=== PATIENT | male | born 1955 | race Caucasian/White ===

== ENCOUNTER 2023-04-03 05:46 | Observation (INO) ==
[2023-04-03] MEDS ORDERED: SODIUM CHLORIDE 0.9% 1000ML 1,000 ML IV ONE (06:35)
[2023-04-03] MEDS ORDERED: SODIUM CHLORIDE 0.9% 250 ML IV PRN (06:35)
[2023-04-03] MEDS ORDERED: PANTOprazole 80 MG in DEXTROSE 5% 100 ML IV ONE (06:35)
[2023-04-03] MEDS ORDERED: PANTOPRAZOLE BOLUS/DRIP 1 EACH IV STA (06:35)
[2023-04-03] MEDS ORDERED: cefTRIAXone SODIUM 2,000 MG/70 ML BAG IV STA (06:35)
--- NOTE | 2023-04-03 06:40 | Emergency Department Note ---
Impression & Plan Hematemesis, Alcoholic ketosis, Lower respiratory infection (e.g., bronchitis, pneumonia, pneumonitis, pulmonitis), Transaminitis, Alcohol abuse, Coffee ground emesis ED Provider Note NAME: PHIL CLARK AGE: 68 SEX: M : 1955 ARRIVES VIA: Walk-In INFORMANT: Patient ED PROVIDER(S): Alexis Muniz DO CHIEF COMPLAINT: Vomiting and a cough HPI: Patient is a 68-year-old male who presents to the ER for symptoms that started this past Saturday. He admits to a cough and congestion. Has been coughing up green to yellow sputum. He has been feeling hot and cold. On he started vomiting. Today and through yesterday he has been vomiting what appears to be coffee-ground emesis/dark blood. He admits to epigastric abdominal pain. No headache or change in vision. No chest pain or shortness of breath. No dysuria, urgency, or frequency. No other exacerbating or remitting factors. He does admit to drinking alcohol. He drinks about a pint of whiskey a day. PAST MEDICAL HISTORY:See Below PAST SURGICAL HISTORY:See Below FAMILY HISTORY:See Below SOCIAL HISTORY:See Below HOME MEDICATIONS:See Below ALLERGIES:See Below VITALS:See Below PHYSICAL EXAMINATION: GENERAL: Sitting up in bed, alert, chronically ill-appearing, disheveled, dried blood on mouth EYE EXAM: normal conjunctiva. OROPHARYNX: Dry mucous membranes with blood around the lips LUNGS: Clear to auscultation. Normal chest wall mechanics HEART: no murmurs, S1 normal and S2 normal ABDOMEN: abdomen soft, non-tender, normo-active bowel sounds, no masses, no rebound or guarding. BACK: Back is symmetrical on inspection and there is no deformity, no midline tenderness, no CVA tenderness. SKIN: no rashes and no bruising UPPER EXTREMITIES: upper extremities are grossly normal. LOWER EXTREMITIES: No pitting edema. NEURO EXAM: Normal sensorium, cranial nerves II-XII grossly intact, normal speech, no gross weakness of arms, no gross weakness of legs. MEDICAL DECISION MAKING: Patient is a 68-year-old male who presents ER for above-stated complaint. IV was established blood work was obtained. External records were reviewed. Labs show mild leukocytosis of 11,000. No significant anemia. INR was unremarkable. BMP with a CO2 of 20 and a gap of 23. Glucose 172. Well-controlled cellulitis and T. bili 1.4. With the hematemesis patient was given IV fluids, Protonix drip and bolus and Rocephin. Did question infiltrates in the lungs and consequently gave azithromycin as well. Patient was updated bedside. Discussed with the hospitalist. He was given thiamine and folate. Admitted for further work-up. Triage Nursing notes reviewed. Limited review of prior medical records performed Vital Signs: reviewed and remarkable for HTN Differential diagnosis: Differential diagnoses includes but is not limited to gastritis, peptic ulcer disease, GERD, gallbladder disease, pancreatitis, small bowel obstruction, appendicitis, diverticulitis, hernia, urinary tract infection, torsion, perforation, trauma, infectious. ER treatment provided: See below Diagnostics interpreted by me include EKG and cardiac monitoring as listed below: -Cardiac Monitoring: An order was placed for continuous cardiac monitoring. The monitor shows a rate of 101 with sinus rhythm. -ECG: Sinus rhythm rate 80 Normal axis No PVCs QTc 495 -Laboratory studies:Interpreted by me as stated above in MDM and shown below. Imaging studies: Xrays: As interpreted by me: Portable AP upright 1 view of the chest shows a questionable hazy density in the right lower lobe CTs show: CT abdomen pelvis showed esophagitis and likely old rib fractures Consultation(s): As described in MDM Procedures:none Critical Care: None Past Med/Surg History Medical History Alcohol abuse HLD (hyperlipidemia) Hypertension Psoriasis Tick bite Surgical History History of colonoscopy with polypectomy 2020 diverticulosis sig colon with polypectomy showing adenomatous polyps Hx of oral surgery Family History Father Prostate cancer Mother Stroke Social History Smoking Status: Never smoker Tobacco Type: Cigarettes packs per day: 1; Cigarettes Per Day: 20; Smoking End Date: 2004; Hx Alcohol Use: Yes Alcohol type: other Alcohol type Comment: [place] Alcohol Intake Frequency Comment: 1 pint to 1/5 everyday Hx Substance Use: No Preferred Language: Greenlandic Communication Ability: Effective Meter Tester Required: No Beliefs That Will Affect Care: None marital status: Single Current Living Situation: Alone Current Living Situation Comment: lives home alone Other Information That Helps Us Care for You: No Feels Safe at Home: Yes Safety Concerns: Feels Safe At This Time Assistive Devices: Denture - Upper, Denture - Lower and Glasses Allergies Allergies Allergy/AdvReac Type Severity Reaction Status Date / Time No Known Allergies Allergy Unverified 01/15/19 15:48 Home Meds Home Medications Medication Instructions Recorded Confirmed diphenhydramine HCl 25 mg tablet 25 mg PO DAILY PRN Allergy Symptoms 01/15/19 04/03/23 (Allergy) atorvastatin 40 mg tablet 40 mg PO QAM 04/03/23 04/03/23 coenzyme Q10 100 mg tablet 100 mg PO DAILY 04/03/23 04/03/23 escitalopram oxalate 10 mg tablet 10 mg PO QAM 04/03/23 04/03/23 metoprolol succinate 50 mg 50 mg PO QAM 04/03/23 04/03/23 tablet,extended release 24 hr montelukast 10 mg tablet 10 mg PO DAILY 04/03/23 04/03/23 Results & Data (ED) Vital Signs Vital Signs - 24 hr 04/03/23 05:49 04/03/23 07:59 04/03/23 08:12 Temperature 36.3 C L Temperature Source Temporal Artery Scan Pulse Rate 109 H 89 Pulse Rate [Right Finger] 81 Respiratory Rate 20 16 Respiratory Depth Normal Blood Pressure 141/91 H Blood Pressure [Right Arm] 180/105 H Blood Pressure Mean 107 Blood Pressure Mean [Right Arm] 130 Pulse Oximetry 97 97 Oxygen Delivery Method Room Air Room Air Sepsis Recent Fever Within 48 Hours Yes Sepsis New/Unexplained Change in Mental Status No Sepsis Action Taken by Nursing No Action Required Laboratory Data 04/03/23 06:27 04/03/23 06:27 Lab Results 04/03/23 04/03/23 04/03/23 Range/Units 06:27 06:27 06:27 WBC 11.16 H (4.8-10.8) K/ul RBC 4.02 L (4.70-6.10) M/uL Hgb 14.1 (14.0-18.0) g/dl Hct 40.7 L (42.0-52.0) % MCV 101.2 H (80.0-100.0) fL MCH 35.1 H (25.0-34.0) pg MCHC 34.6 (32.0-36.0) g/dL RDW Std Deviation 47.9 H (36.4-46.3) fL RDW Coeff of Rashawn 12.8 (11.5-14.5) % Plt Count 256 (130-400) K/uL MPV 10.7 (9.4-12.4) fL PT 10.7 (9.0-12.0) Seconds INR 1.0 (0.9-1.1) APTT 26.3 (21.0-31.0) Seconds PTT Ratio 0.9 Sodium 142 (136-145) mmol/L Potassium 3.8 (3.5-5.1) mmol/L Chloride 99 (98-107) mmol/L Carbon Dioxide 20 L (21-32) mmol/L Anion Gap 23 H (3-11) BUN 12 (6-23) mg/dl Creatinine 1.09 (0.6-1.4) mg/dl Est Cr Clr Drug Dosing Not Reportable Est GFR ( Amer) 81.0 ml/min Est GFR (Non-Af Amer) 69.9 ml/min BUN/Creatinine Ratio 11.0 (10-20) Glucose 172 H (70-99(Fasting)) mg/dl Calcium 9.5 (8.6-10.3) mg/dl Total Bilirubin 1.4 H (0.2-1.0) mg/dl AST 133 H (13-39) U/L ALT 53 H (7-52) U/L Alkaline Phosphatase 140 H (34-104) U/L Troponin I High Sens 15.1 (0-20) pg/ml Total Protein 8.0 (6.0-8.3) gm/dl Albumin 4.8 (3.4-5.0) gm/dl Globulin 3.2 (2.5-4.0) gm/dl Albumin/Globulin Ratio 1.5 (0.9-2) SARS-CoV-2 (PCR) (Negative) Influenza Type A (PCR) (Neg) Influenza Type B (PCR) (Neg) RSV (RT-PCR) (Neg) Blood Type Antibody Screen Crossmatch 04/03/23 04/03/23 Range/Units 06:27 06:54 WBC (4.8-10.8) K/ul RBC (4.70-6.10) M/uL Hgb (14.0-18.0) g/dl Hct (42.0-52.0) % MCV (80.0-100.0) fL MCH (25.0-34.0) pg MCHC (32.0-36.0) g/dL RDW Std Deviation (36.4-46.3) fL RDW Coeff of Rashawn (11.5-14.5) % Plt Count (130-400) K/uL MPV (9.4-12.4) fL PT (9.0-12.0) Seconds INR (0.9-1.1) APTT (21.0-31.0) Seconds PTT Ratio Sodium (136-145) mmol/L Potassium (3.5-5.1) mmol/L Chloride (98-107) mmol/L Carbon Dioxide (21-32) mmol/L Anion Gap (3-11) BUN (6-23) mg/dl Creatinine (0.6-1.4) mg/dl Est Cr Clr Drug Dosing Est GFR ( Amer) ml/min Est GFR (Non-Af Amer) ml/min BUN/Creatinine Ratio (10-20) Glucose (70-99(Fasting)) mg/dl Calcium (8.6-10.3) mg/dl Total Bilirubin (0.2-1.0) mg/dl AST (13-39) U/L ALT (7-52) U/L Alkaline Phosphatase (34-104) U/L Troponin I High Sens (0-20) pg/ml Total Protein (6.0-8.3) gm/dl Albumin (3.4-5.0) gm/dl Globulin (2.5-4.0) gm/dl Albumin/Globulin Ratio (0.9-2) SARS-CoV-2 (PCR) NEGATIVE (Negative) Influenza Type A (PCR) Negative (Neg) Influenza Type B (PCR) Negative (Neg) RSV (RT-PCR) Negative (Neg) Blood Type O Negative Antibody Screen NEGATIVE Crossmatch See Detail Administered Medications Pantoprazole Sodium 40 mg/ (Dextrose) 100 mls @ 20 mls/hr IV Q5H [facility] Stop: 05/03/23 06:59 Last Admin: 04/03/23 12:06 Dose: 8 mg/hr, 20 mls/hr Documented By: Infusion: 04/03/23 12:06 Dose: 8 mg/hr, 20 mls/hr Documented By: Admin: 04/03/23 07:56 Dose: 8 mg/hr, 20 mls/hr Documented By: MAY Dextrose/Lactated Ringer's (D5w And Lactated Ringers) 1,000 mls @ 100 mls/hr IV .Q10H YANG Stop: 05/03/23 10:20 Last Admin: 04/03/23 11:23 Dose: 100 mls/hr Documented By: EARLINE Discontinued Medications Pantoprazole Sodium (Protonix Bolus/Drip) 0 mls @ 1 mls/hr IV ONE STA Stop: 04/03/23 06:36 Last Admin: 04/03/23 07:19 Dose: Not Given Documented By: MAY Pantoprazole Sodium 80 mg/ (Dextrose) 120 mls @ 400 mls/hr IV NOW ONE Stop: 04/03/23 06:52 Last Infusion: 04/03/23 07:22 Dose: 0 mls/hr Documented By: Admin: 04/03/23 07:00 Dose: 400 mls/hr Documented By: MAY Ceftriaxone Sodium (Rocephin) 2,000 mg in 70 mls @ 140 mls/hr IV NOW STA Stop: 04/03/23 07:04 Last Infusion: 04/03/23 08:30 Dose: 0 mls/hr Documented By: Admin: 04/03/23 07:48 Dose: 140 mls/hr Documented By: MAY Sodium Chloride (Nss 1000ml) 1,000 mls @ 999 mls/hr IV .Q1H1M ONE Stop: 04/03/23 07:35 Last Infusion: 04/03/23 10:25 Dose: 0 mls/hr Documented By: Admin: 04/03/23 07:48 Dose: 999 mls/hr Documented By: MAY Thiamine HCl 100 mg/ Syringe 10 mls @ 2 mls/min IV NOW STA Stop: 04/03/23 08:42 Last Admin: 04/03/23 09:05 Dose: 2 mls/min Documented By: MAY Folic Acid 1 mg/ Syringe 10 mls @ 5 mls/min IV NOW STA Stop: 04/03/23 08:39 Last Admin: 04/03/23 09:05 Dose: 5 mls/min Documented By: MAY Azithromycin 500 mg/ Dextrose 255 mls @ 127.5 mls/hr IV NOW STA Stop: 04/03/23 10:44 Last Infusion: 04/03/23 11:23 Dose: 0 mls/hr Documented By: Admin: 04/03/23 09:10 Dose: 127.5 mls/hr Documented By: MAY Ioversol (Optiray 320 100ml) 94 ml IV ONCE ONE Stop: 04/03/23 07:36 Last Admin: 04/03/23 07:31 Dose: 94 ml Documented By: JOSEPH Imaging Data Radiologist's Impression: Abdomen/Pelvis CT 04/03/23 07:[address] WITH IV CONTRAST CT DOSE: 468.58 mGy.cm HISTORY: vomiting blood TECHNIQUE: Multiaxial CT images of the abdomen and pelvis were performed followi ng the use of intravenous contrast. A dose lowering technique was utilized adhering to the principles of ALARA. COMPARISON STUDY: None. FINDINGS: There are trace bilateral pleural effusions. Moderate circumferential thickening of the distal esophagus with paraesophageal edema/fluid. This is favors a nonspecific esophagitis. No pneumomediastinum identified to suggest an esophageal perforation. Linear densities within the right lower lobe favor scarring. There are multiple healing/healed right-sided rib fractures. This likely accounts for the previously described chest x-ray abnormality. Multiple old, healed left-sided rib fractures are noted. Focal indentation at the inferior endplate of L1 likely represents a Schmorl's node or old fracture. No paravertebral edema to suggest an acute injury. No pneumoperitoneum. No pneumatosis. A few prominent gastrohepatic lymph node measuring up to 6 mm. This may be reactive. Hepatic steatosis. The main portal vein is patent. The gallbladder, pancreas, spleen, adrenal glands are unremarkable. The kidneys enhance normally. No hydronephrosis. Moderate calcified plaque within the normal caliber abdominal aorta. No retroperitoneal or pelvic lymphadenopathy. No pelvic free fluid. The bladder is unremarkable. Colonic diverticulosis. No evidence for acute diverticulitis. Normal appendix. No evidence for a bowel obstruction. IMPRESSION: 1. Moderate circumferential thickening of the distal esophagus with paraesophageal edema/fluid. This is favors a nonspecific esophagitis. An underlying esophageal injury could also have a similar appearance in the appropriate clinical setting. However, there is no pneumomediastinum identified to suggest an esophageal perforation. 2. Trace bilateral pleural effusions. 3. Multiple healing/healed right-sided rib fractures with right lower lobe linear scarlike densities. This likely accounts for the chest x-ray abnormality. 4. Hepatic steatosis. 5. No bowel wall thickening or obstruction. 6. Additional findings as described above. ACT 112: Negative or not required by law. Electronically signed by: Dalton Sanchez M.D. 04/03/2023 8:19 AM Chest X-Ray 04/03/23 07:01 XR chest 1V portable HISTORY: cough COMPARISON: Chest 01/15/2019. FINDINGS: No pneumothorax. No pleural effusions. The cardiac silhouette is normal in size. There are calcifications within the thoracic aorta. The left lung is clear. There are old, healed bilateral rib fractures noted. Small hazy density within the periphery of the right lower lung zone. This could be due to overlapping soft tissue or a developing airspace opacity. IMPRESSION: Small hazy density within the periphery of the right lower lung zone which could be due to overlying soft tissue or a developing airspace opacity. This will be better appreciated on the same day abdomen and pelvis CT. ACT 112: Negative or not required by law. Electronically signed by: Dalton Sanchez M.D. 04/03/2023 7:38 AM Discharge Plan Visit Data Chief Complaint: Flu Like Symptoms Stated Complaint: COVID POSSIBLE POS, COUGHING BLOOD ED Provider: Alexis Muniz Discharge Problem: Hematemesis, Alcoholic ketosis, Lower respiratory infection (e.g., bronchitis, pneumonia, pneumonitis, pulmonitis), Transaminitis, Alcohol abuse, Coffee ground emesis Patient Disposition: Admitted As Inpatient Discharge Instructions Interventions: ED Discharge Assessment Last Done: 04/03/23 09:25
[2023-04-03 06:51] LABS: Hematocrit (blood only) 40.7 % (42.0-52.0); Hemoglobin 14.1 g/dl (14.0-18.0); Mean Corpuscular Hemoglobin 35.1 pg (25.0-34.0); Mean Corpuscular Hgb Conc 34.6 g/dL (32.0-36.0); Mean Corpuscular Volume 101.2 fL (80.0-100.0); Mean Platelet Volume 10.7 fL (9.4-12.4); Platelet Count 256 K/uL (130-400); RDW Coefficient of Variation 12.8 % (11.5-14.5); RDW Standard Deviation 47.9 fL (36.4-46.3); Red Blood Count 4.02 M/uL (4.70-6.10); White Blood Count 11.16 K/ul (4.8-10.8)
[2023-04-03 07:04] LABS: Alanine Aminotransferase 53 U/L (7-52); Albumin Globulin Ratio 1.5 (0.9-2); Albumin Level 4.8 gm/dl (3.4-5.0); Alkaline Phosphatase 140 U/L (34-104); Anion Gap 23 (3-11); Aspartate Aminotransferase 133 U/L (13-39); Bilirubin,Total 1.4 mg/dl (0.2-1.0); Blood Urea Nitrogen 12 mg/dl (6-23); Calcium 9.5 mg/dl (8.6-10.3); Carbon Dioxide 20 mmol/L (21-32); Chloride 99 mmol/L (98-107); Est GFR (Non-African American) 69.9 ml/min; Globulin 3.2 gm/dl (2.5-4.0); Glucose 172 mg/dl (70-99(Fasting)); Potassium 3.8 mmol/L (3.5-5.1); Sodium 142 mmol/L (136-145)
[2023-04-03 07:11] LABS: Partial Thromboplastin Ratio 0.9; Partial Thromboplastin Time 26.3 Seconds (21.0-31.0); Prothrombin Time 10.7 Seconds (9.0-12.0)
[2023-04-03 07:12] LABS: Troponin I High Sensitivity 15.1 pg/ml (0-20)
[2023-04-03] MEDS ORDERED: OPTIRAY 320 100ml IV ONE (07:35)
--- NOTE | 2023-04-03 07:39 | XRay Report ---
XR chest 1V portable HISTORY: cough COMPARISON: Chest 01/15/2019. FINDINGS: No pneumothorax. No pleural effusions. The cardiac silhouette is normal in size. There are calcifications within the thoracic aorta. The left lung is clear. There are old, healed bilateral rib fractures noted. Small hazy density within the periphery of the right lower lung zone. This could be due to overlapping soft tissue or a developing airspace opacity. IMPRESSION: Small hazy density within the periphery of the right lower lung zone which could be due to overlying soft tissue or a developing airspace opacity. This will be better appreciated on the same day abdomen and pelvis CT. ACT 112: Negative or not required by law. Electronically signed by: Dalton Sanchez M.D. 04/03/2023 7:38 AM
[2023-04-03 07:48] LABS: Influenza A virus by PCR Negative (Neg); Influenza B virus by PCR Negative (Neg); RSV by PCR Negative (Neg); SARS CoV2 RNA(COVID-19) Ceph NEGATIVE (Negative)
[2023-04-03] MEDS: PANTOprazole 40 MG in DEXTROSE 5% 100 ML IV SCH ×4 (07:56→21:49)
--- NOTE | 2023-04-03 08:20 | CT Scan Report ---
ABDOMEN AND PELVIS CT WITH IV CONTRAST CT DOSE: 468.58 mGy.cm HISTORY: vomiting blood TECHNIQUE: Multiaxial CT images of the abdomen and pelvis were performed following the use of intrave nous contrast. A dose lowering technique was utilized adhering to the principles of ALARA. COMPARISON STUDY: None. FINDINGS: There are trace bilateral pleural effusions. Moderate circumferential thickening of the dis kelly esophagus with paraesophageal edema/fluid. This is favors a nonspecific esophagitis. No pneumomed iastinum identified to suggest an esophageal perforation. Linear densities within the right lower lob e favor scarring. There are multiple healing/healed right-sided rib fractures. This likely accounts f or the previously described chest x-ray abnormality. Multiple old, healed left-sided rib fractures ar e noted. Focal indentation at the inferior endplate of L1 likely represents a Schmorl's node or old f racture. No paravertebral edema to suggest an acute injury. No pneumoperitoneum. No pneumatosis. A fe w prominent gastrohepatic lymph node measuring up to 6 mm. This may be reactive. Hepatic steatosis. T he main portal vein is patent. The gallbladder, pancreas, spleen, adrenal glands are unremarkable. Th e kidneys enhance normally. No hydronephrosis. Moderate calcified plaque within the normal caliber ab dominal aorta. No retroperitoneal or pelvic lymphadenopathy. No pelvic free fluid. The bladder is unr emarkable. Colonic diverticulosis. No evidence for acute diverticulitis. Normal appendix. No evidence for a bowel obstruction. IMPRESSION: 1. Moderate circumferential thickening of the distal esophagus with paraesophageal edema/fluid. This is favors a nonspecific esophagitis. An underlying esophageal injury could also have a similar appear ance in the appropriate clinical setting. However, there is no pneumomediastinum identified to sugges t an esophageal perforation. 2. Trace bilateral pleural effusions. 3. Multiple healing/healed right-sided rib fractures with right lower lobe linear scarlike densities. This likely accounts for the chest x-ray abnormality. 4. Hepatic steatosis. 5. No bowel wall thickening or obstruction. 6. Additional findings as described above. ACT 112: Negative or not required by law. Electronically signed by: Dalton Sanchez M.D. 04/03/2023 8:19 AM
[2023-04-03] MEDS ORDERED: THIAMINE HCL 100 MG in SYRINGE 9 ML IV STA (08:38)
[2023-04-03] MEDS ORDERED: FOLIC ACID 1 MG in SYRINGE 9.8 ML IV STA (08:38)
[2023-04-03] MEDS ORDERED: AZITHROMYCIN 500 MG in DEXTROSE 5% 250 ML IV STA (08:45)
--- NOTE | 2023-04-03 10:16 | Gastrointestinal Consultation ---
Date of Consultation April 03, 2023 Assessment & Plan (1) Transaminitis: (2) Coffee ground emesis: (3) Lower respiratory infection (e.g., bronchitis, pneumonia, pneumonitis, pulmonitis): Pt is a 68 yo male who presented w productive cough, n/v symptoms and had an episode of hematemesis in ED this AM. He is hypertensive but normal HR, blood ct, plt, coag functions are normal. Liver appears steatotic on CT. CT showed distal esophagus thickening wo pneumomediastinum. Pt w hx of heavy ETOH use, and prior NSAIDs. DDX: severe esophagitis, Alma Loera tear, PUD, gastritis. - May have sips/chips today - NPO after MN for EGD eval tomorrow 04/04 - PPI bolus and gtt - Avoid NSAIDs/high dose ASA - ETOH cessation - Symptomatic management otherwise - Noted elevated LFTs: Tbili 1.4, AST 133, ALT 53, Alk phos. Suspect related to ETOH hepatitis (Maddrey score <32). Will trend, but will also obtain serologies to r/o AIH, viral/hepatitis infections Supervising Physician Co-Signing Physician Notes I personally saw and evaluated the patient on 04/03/2023 with ARLEY Parnell and agree with her findings and plan of care. 68 y/o M with history of alcohol abuse drinking 1 pint to 1/5 daily who presented with 4-5 episodes of coffee ground emesis. States last episode was about 5 years ago. Had alot of nausea prior to emesis. No bright red blood, hematochezia, or melena. Had a colonoscopy 4 years ago but no history of EGD. hgb 14 on admission with normal BUN. No history of cirrhosis/liver disease. CT abdomen with hepatic steatosis. Platelet count and INR normal. Abdomen is soft and non-tender on exam. Will plan for EGD tomorrow for further evaluation as patient is HDS. Suspect esophagitis or alma loera tear. NPO at midnight. Continue PPI drip. Trend H/H. If he becomes unstable or has large volume/bright red hematemesis please let us know as he would need more urgent endoscopy. Ok for clear liquid diet today. Sister at bedside updated. His elevated LFTs is likely due to alcohol abuse. Continue to trend. Dulce Flores, DO Gastroenterology and Hepatology History of Present Illness Reason for Consultation: Coffee ground emesis ; abnormal CT of esophagus Requesting Physician: Dr. Yadiel Figueroa Attending Physician: Dr. Dulce Flores History of Present Illness Pt is a 68 yo male w PMHx of HTN, HLD, depression, who presented to ED today w productive cough, nausea and vomiting symptoms since 2 days ago. He's having fever, chills but didn't take hi temp. His sputum was yellowish. RSV, flue and COVID negative. This morning had coffee ground emesis x 1 episode in ED (about 200ml). He reports sore throat, and but denies abd pain. Last BM 2 days ago wo dark tarry stools or BRBPR. He did notice dark stools months ago. Pt drinks 1 pint of [place] a day. + marijuana, denies tobacco currently. Rarely takes Ibuprofen. Labs showed he has mild leukocytosis, normal blood ct, plt, BUN. No coagulopathy. CT abd/pelvis w contrast showed moderate circumferential thickening of distal esophagus w paraesophageal edema/fluid favoring non specific esophagitis. No pneumomediastinum to suggest perforation. + hepatic steatosis, healed R ribs fractures, bilateral pleural effusions. No hx of EGD. Last colonoscopy in 2019 - colon polyps. Scheduled for repeat screening colonoscopy 07/2023 Allergies Allergy/AdvReac Type Severity Reaction Status Date / Time No Known Allergies Allergy Unverified 01/15/19 15:48 Home Medications Medication Instructions Recorded Confirmed Type diphenhydramine HCl 25 mg tablet 25 mg PO DAILY PRN Allergy Symptoms 01/15/19 04/03/23 History (Allergy) atorvastatin 40 mg tablet 40 mg PO QAM 04/03/23 04/03/23 History coenzyme Q10 100 mg tablet 100 mg PO DAILY 04/03/23 04/03/23 History escitalopram oxalate 10 mg tablet 10 mg PO QAM 04/03/23 04/03/23 History metoprolol succinate 50 mg 50 mg PO QAM 04/03/23 04/03/23 History tablet,extended release 24 hr montelukast 10 mg tablet 10 mg PO DAILY 04/03/23 04/03/23 History Patient History Medical History Alcohol abuse HLD (hyperlipidemia) Hypertension Psoriasis Tick bite Surgical History History of colonoscopy with polypectomy 2020 diverticulosis sig colon with polypectomy showing adenomatous polyps Hx of oral surgery Family History Father Prostate cancer Mother Stroke Social History Smoking Status: Never smoker Tobacco Type: Cigarettes packs per day: 1; Cigarettes Per Day: 20; Smoking End Date: 2004; Hx Alcohol Use: Yes Alcohol type: other Alcohol type Comment: [place] Alcohol Intake Frequency Comment: 1 pint to 1/5 everyday Hx Substance Use: No Preferred Language: [place]an Communication Ability: Effective Wage And Salary Administrator Required: No Beliefs That Will Affect Care: None marital status: Single Current Living Situation: Alone Current Living Situation Comment: lives home alone Other Information That Helps Us Care for You: No Feels Safe at Home: Yes Safety Concerns: Feels Safe At This Time Assistive Devices: Denture - Upper, Denture - Lower and Glasses Review of Systems Review of Systems: All systems reviewed & are unremarkable except as noted in HPI & below Physical Exam Constitutional: + thin and cooperative Eyes: PERRL, conjunctivae normal, anicteric sclerae ENMT: external ear and nose normal, oropharynx normal Respiratory: Crackles on RUL, + productive cough. Cardiovascular: RRR, no murmur, no edema Gastrointestinal (Abdomen): normal bowel sounds, soft, nontender, no hepatosplenomegaly Skin: no rashes, warm and dry no jaundice Psychiatric: A+Ox3, euthymic affect Lymphatic: no lymphedema Results & Data Vital Signs (Past 12 Hours) Vital Signs Temp Pulse Pulse Resp BP BP Pulse Ox 04/03/23 09:25 04/03/23 09:19 87 16 140/100 97 04/03/23 08:12 89 04/03/23 07:59 81 16 180/105 H 97 04/03/23 05:49 36.3 C L 109 H 20 141/91 H 97 O2 Del Method 04/03/23 09:25 Room Air 04/03/23 09:19 04/03/23 08:12 04/03/23 07:59 Room Air 04/03/23 05:49 Room Air
[2023-04-03] MEDS ORDERED: ACETAMINOPHEN 325 MG TAB PO PRN (10:21)
[2023-04-03] MEDS ORDERED: LORazepam 2 MG/1 ML VIAL IV PRN (10:21)
[2023-04-03] MEDS ORDERED: POLYETHYLENE (MIRALAX) 17 GM PACK PO PRN (10:21)
[2023-04-03] MEDS ORDERED: ONDANSETRON INJ 2 MG/ML 2 ML VIAL IV PRN (10:21)
[2023-04-03] MEDS ORDERED: PROMETHAZINE HCL 6.25 MG in SODIUM CHLORIDE 0.9% 50 ML IV PRN (10:33)
--- NOTE | 2023-04-03 10:38 | History & Physical Report ---
Date of Service April 03, 2023 Assessment & Plan (1) Coffee ground emesis: (2) Alcoholic ketosis: (3) Lower respiratory infection (e.g., bronchitis, pneumonia, pneumonitis, pulmonitis): (4) Alcohol abuse: (5) Hypertension: (6) Transaminitis: Plan This is a 68-year-old male who has significant past medical history of HTN, HLD, allergic rhinitis, depression, former tobacco abuse and alcohol abuse who presents to ER secondary to flulike symptoms x5 days; coffee-ground emesis x2 days. Coffee ground emesis Suspected UGIB admit to tele continue PPI bolus/gtt NPO until seen by GI consult gastroenterology type/crossed, tranfuse if hgb < 7 repeat H/H this afternoon IV D5LR @ 100cc/hr Blood consent was obtained from the patient as delegated by Dr. Figueroa. Risks and benefits were explained. All questions were answered, and the patient was offered the opportunity to discuss with attending physician and declined. Alcohol abuse drinks 1 pint to 1/5 of bourbon daily last drink 5 days ago, likely out of withdrawal window awss scale, prn ativan daily thiamine and folic acid counseled on cessation Alcoholic ketosis Elevated anion gap likely in setting of alcohol use follow daily labs Lower respiratory tract infection pt producing purulent sputum, obtain sputum culture continue empiric antibiotics for now with Rocephin, will switch to Doxy 2/2 QTC will do IV antibiotics for now until pt better able to tolerate PO check procalcitonin Prolonged QTC avoid QTC prolonging meds Hyperglycemia check a1c in a.m. Transaminitis AST > ALT likely 2/2 alcohol trend liver functions CT reveal hepatic steatosis Hold statin for now HTN continue metoprolol DVT ppx: SCDS 2/2 suspected GIB DNR/DNI PCP: Gaston Yañez Dispo: admit to tele, pt states he let his medicaid lapse, CM may be able to assist with this Pt was seen and examined in collaboration with Dr. Figueroa, please see addendum A total of 80 was spent coordinating, documenting, and providing care for this patient excluding time spent in the performance of separately billed services. This included personally viewing all current laboratories and imaging studies, medication reconciliation, outpatient chart review, and discussion with florentin jackman. The chart was completed utilizing [employer] Speech voice recognition software. Grammatical errors, random word insertions, pronoun errors, and incomplete sentences are an occasional consequence of this system due to software limitations, ambient noise, and hardware issues. Any formal questions or concerns about the content, text, or information contained within the body of this dictation should be directly addressed to the provider for clarification.. Admission and Anticipated Discharge Date Admission Date: April 03, 2023 History of Present Illness Chief Complaint: Flulike symptoms x5 days; coffee-ground emesis x2 days. Primary Care Provider: Gaston Yañez DO This is a 68-year-old male who has significant past medical history of HTN, HLD, allergic rhinitis, depression, former tobacco abuse and alcohol abuse who presents to ER secondary to flulike symptoms x5 days; coffee-ground emesis x2 days. Patient's sister is at bedside. He is a retired [employer]. His symptoms started on Saturday with sinus congestion, sore throat and productive cough. The symptoms have continued and worsened and is now producing purulent colored sputum. He also generally feels nauseated, fevers, chills, sweats, lightheaded and dizzy. Yesterday he developed vomiting and described it as coffee-ground in nature. In ER he had episode of emesis and produced 300 cc of coffee-ground fluid. He denies any abdominal pain or diarrhea. His last bowel movement was 5 days ago. He has had poor appetite over the last several days and inability to eat, drink or take his medications. He also states significant weight loss over the last several months but is unable to quantify how much. Sister at bedside also noticed weight loss. He no longer smokes tobacco and quit approximately 15 to 20 years ago. He does drink a pint to 1/5 of bourbon every day. His last drink was on Saturday. He denies any prior history of withdrawal or having withdrawal-like symptoms. He currently lives by himself. In ED patient's blood pressure was elevated but he otherwise remained hemodynamically stable. Lab work revealed a stable H&H at 14.1 and 40.7 with microcytic indices. He had a slight elevation in his WBC at 11.16 K, BUN 12, creatinine 1.09, elevated anion gap at 23, glucose 172 and transaminitis with total bilirubin 1.1, AST 133, ALT 53 and alkaline phosphatase at 140. His PT and INR was normal. CT abdomen pelvis revealed moderate circumferential thickening of the distal esophagus with paraesophageal edema/fluid favoring a nonspecific esophagitis. Trace bilateral pleural effusions, multiple healed right-sided rib fractures and hepatic steatosis. Patient states he fell off a ladder approximately 6 years ago. He denies any chest pain. He was type and screen. Allergies Allergy/AdvReac Type Severity Reaction Status Date / Time No Known Allergies Allergy Unverified 01/15/19 15:48 Home Medications Medication Instructions Recorded Confirmed Type diphenhydramine HCl 25 mg tablet 25 mg PO DAILY PRN Allergy Symptoms 01/15/19 04/03/23 History (Allergy) atorvastatin 40 mg tablet 40 mg PO QAM 04/03/23 04/03/23 History coenzyme Q10 100 mg tablet 100 mg PO DAILY 04/03/23 04/03/23 History escitalopram oxalate 10 mg tablet 10 mg PO QAM 04/03/23 04/03/23 History metoprolol succinate 50 mg 50 mg PO QAM 04/03/23 04/03/23 History tablet,extended release 24 hr montelukast 10 mg tablet 10 mg PO DAILY 04/03/23 04/03/23 History Past Med/Surg History Medical History Alcohol abuse HLD (hyperlipidemia) Hypertension Psoriasis Tick bite Surgical History History of colonoscopy with polypectomy 2020 diverticulosis sig colon with polypectomy showing adenomatous polyps Hx of oral surgery Family History Father Prostate cancer Mother Stroke Social History Smoking Status: Never smoker Tobacco Type: Cigarettes packs per day: 1; Cigarettes Per Day: 20; Smoking End Date: 2004; Hx Alcohol Use: Yes Alcohol type: other Alcohol type Comment: [place] Alcohol Intake Frequency Comment: 1 pint to 1/5 everyday Hx Substance Use: No Preferred Language: Israeli Communication Ability: Effective Beer Cooler Required: No Beliefs That Will Affect Care: None marital status: Single Current Living Situation: Alone Current Living Situation Comment: lives home alone Other Information That Helps Us Care for You: No Feels Safe at Home: Yes Safety Concerns: Feels Safe At This Time Assistive Devices: Denture - Upper, Denture - Lower and Glasses Review of Systems Review of Systems: All systems reviewed & are unremarkable except as noted in HPI & below Physical Exam Physical Exam: Constitutional: Chronically ill appearing, thin, M, vitals as above, NAD, sitting up in bed, pleasant, conversing easily Head: Normocephalic, Atraumatic Eyes: PERRL, conjunctivae normal, anicteric sclerae ENMT: external ear and nose normal, oropharynx normal dry membranes, erythematous pharynx Neck: trachea midline, no thyromegaly normal visual inspection Respiratory: normal respiratory effort, lungs with bibasilar rhonchi, no wheeze, rales. Normal insp/exp effort, no accessory muscle use, saturing normally on room air Cardiovascular: RRR, no murmur, no edema Vessels: no JVD or carotid bruit Chest: normal inspection of chest Abdomen: normal bowel sounds, soft, nontender, no hepatosplenomegaly Musculoskeletal: no cyanosis or clubbing, extremities motor strength 5/5 Skin: no rashes, warm and dry normal turgor Neurologic: PERRL, EOMI, accommodation nl, no face palsy, no dysarthria CN's II-XI intact bilaterally and moves all extremities Psychiatric: A+Ox3, euthymic affect Lymphatic: no cervical or axillary lymphadenopathy : deferred Results & Data Results & Data Vital Signs (Past 12 Hours) Vital Signs Temp Pulse Pulse Resp BP BP Pulse Ox 04/03/23 09:25 04/03/23 09:19 87 16 140/100 97 04/03/23 08:12 89 04/03/23 07:59 81 16 180/105 H 97 04/03/23 05:49 36.3 C L 109 H 20 141/91 H 97 O2 Del Method 04/03/23 09:25 Room Air 04/03/23 09:19 04/03/23 08:12 04/03/23 07:59 Room Air 04/03/23 05:49 Room Air Diagnostic Findings Abdomen/Pelvis CT 04/03/23 07:[address] WITH IV CONTRAST CT DOSE: 468.58 mGy.cm HISTORY: vomiting blood TECHNIQUE: Multiaxial CT images of the abdomen and pelvis were performed following the use of intravenous contrast. A dose lowering technique was utilized adhering to the principles of ALARA. COMPARISON STUDY: None. FINDINGS: There are trace bilateral pleural effusions. Moderate circumferential thickening of the distal esophagus with paraesophageal edema/fluid. This is favors a nonspecific esophagitis. No pneumomediastinum identified to suggest an esophageal perforation. Linear densities within the right lower lobe favor scarring. There are multiple healing/healed right-sided rib fractures. This likely accounts for the previously described chest x-ray abnormality. Multiple old, healed left-sided rib fractures are noted. Focal indentation at the inferior endplate of L1 likely represents a Schmorl's node or old fracture. No paravertebral edema to suggest an acute injury. No pneumoperitoneum. No p neumatosis. A few prominent gastrohepatic lymph node measuring up to 6 mm. This may be reactive. Hepatic steatosis. The main portal vein is patent. The gallbladder, pancreas, spleen, adrenal glands are unremarkable. The kidneys enhance normally. No hydronephrosis. Moderate calcified plaque within the normal caliber abdominal aorta. No retroperitoneal or pelvic lymphadenopathy. No pelvic free fluid. The bladder is unremarkable. Colonic diverticulosis. No evidence for acute diverticulitis. Normal appendix. No evidence for a bowel obstruction. IMPRESSION: 1. Moderate circumferential thickening of the distal esophagus with paraesophageal edema/fluid. This is favors a nonspecific esophagitis. An underlying esophageal injury could also have a similar appearance in the appropriate clinical setting. However, there is no pneumomediastinum identified to suggest an esophageal perforation. 2. Trace bilateral pleural effusions. 3. Multiple healing/healed right-sided rib fractures with right lower lobe linear scarlike densities. This likely accounts for the chest x-ray abnormality. 4. Hepatic steatosis. 5. No bowel wall thickening or obstruction. 6. Additional findings as described above. ACT 112: Negative or not required by law. Electronically signed by: Dalton Sanchez M.D. 04/03/2023 8:19 AM Chest X-Ray 04/03/23 07:01 XR chest 1V portable HISTORY: cough COMPARISON: Chest 01/15/2019. FINDINGS: No pneumothorax. No pleural effusions. The cardiac silhouette is normal in size. There are calcifications within the thoracic aorta. The left lung is clear. There are old, healed bilateral rib fractures noted. Small hazy density within the periphery of the right lower lung zone. This could be due to overlapping soft tissue or a developing airspace opacity. IMPRESSION: Small hazy density within the periphery of the right lower lung zone which could be due to overlying soft tissue or a developing airspace opacity. This will be better appreciated on the same day abdomen and pelvis CT. ACT 112: Negative or not required by law. Electronically signed by: Dalton Sanchez M.D. 04/03/2023 7:38 AM Medications Administered Medication List Pantoprazole Sodium 40 mg/ (Dextrose) 100 mls @ 20 mls/hr IV Q5H YANG Stop: 05/03/23 06:59 Last Admin: 04/03/23 07:56 Dose: 8 mg/hr, 20 mls/hr Documented By: MAY Azithromycin 500 mg/ Dextrose 255 mls @ 127.5 mls/hr IV NOW STA Stop: 04/03/23 10:44 Last Admin: 04/03/23 09:10 Dose: 127.5 mls/hr Documented By: MAY Discontinued Medications Pantoprazole Sodium (Protonix Bolus/Drip) 0 mls @ 1 mls/hr IV ONE STA Stop: 04/03/23 06:36 Last Admin: 04/03/23 07:19 Dose: Not Given Documented By: MAY Pantoprazole Sodium 80 mg/ (Dextrose) 120 mls @ 400 mls/hr IV NOW ONE Stop: 04/03/23 06:52 Last Infusion: 04/03/23 07:22 Dose: 0 mls/hr Documented By: Admin: 04/03/23 07:00 Dose: 400 mls/hr Documented By: MAY Ceftriaxone Sodium (Rocephin) 2,000 mg in 70 mls @ 140 mls/hr IV NOW STA Stop: 04/03/23 07:04 Last Infusion: 04/03/23 08:30 Dose: 0 mls/hr Documented By: Admin: 04/03/23 07:48 Dose: 140 mls/hr Documented By: MAY Sodium Chloride (Nss 1000ml) 1,000 mls @ 999 mls/hr IV .Q1H1M ONE Stop: 04/03/23 07:35 Last Admin: 04/03/23 07:48 Dose: 999 mls/hr Documented By: MAY Thiamine HCl 100 mg/ Syringe 10 mls @ 2 mls/min IV NOW STA Stop: 04/03/23 08:42 Last Admin: 04/03/23 09:05 Dose: 2 mls/min Documented By: MAY Folic Acid 1 mg/ Syringe 10 mls @ 5 mls/min IV NOW STA Stop: 04/03/23 08:39 Last Admin: 04/03/23 09:05 Dose: 5 mls/min Documented By: MAY Ioversol (Optiray 320 100ml) 94 ml IV ONCE ONE Stop: 04/03/23 07:36 Last Admin: 04/03/23 07:31 Dose: 94 ml Documented By: JOSEPH ECG Rate (beats per minute): 80 Rhythm: normal sinus Additional Comments: prolonged qtc 495ms, RBBB, no st t wave changes, minimal voltage criteria for LVH COVID-19 Results Results COVID-19 Adm Lab Results: RBC 4.02 M/uL (4.70-6.10) L 04/03/23 WBC 11.16 K/ul (4.8-10.8) H 04/03/23 Hgb 14.1 g/dl (14.0-18.0) 04/03/23 Hct 40.7 % (42.0-52.0) L 04/03/23 Plt Count 256 K/uL (130-400) 04/03/23 Na 142 mmol/L (136-145) 04/03/23 K 3.8 mmol/L (3.5-5.1) 04/03/23 Cl 99 mmol/L (98-107) 04/03/23 CO2 20 mmol/L (21-32) L 04/03/23 Anion Gap 23 (3-11) H 04/03/23 BUN 12 mg/dl (6-23) 04/03/23 Creatinine 1.09 mg/dl (0.6-1.4) 04/03/23 BUN/Creatinine Ratio 11.0 (10-20) 04/03/23 Glucose Level 172 mg/dl (70-99(Fasting)) H 04/03/23 Ca 9.5 mg/dl (8.6-10.3) 04/03/23 Total Bilirubin 1.4 mg/dl (0.2-1.0) H 04/03/23 AST/SGOT 133 U/L (13-39) H 04/03/23 ALT/SGPT 53 U/L (7-52) H 04/03/23 Alkaline Phosphatase 140 U/L (34-104) H 04/03/23 Total Protein 8.0 gm/dl (6.0-8.3) 04/03/23 Albumin 4.8 gm/dl (3.4-5.0) 04/03/23 Globulin 3.2 gm/dl (2.5-4.0) 04/03/23 Albumin/Globulin Ratio 1.5 (0.9-2) 04/03/23 PTT 26.3 Seconds (21.0-31.0) 04/03/23 INR 1.0 (0.9-1.1) 04/03/23 COVID-19 PCR NEGATIVE (Negative) 04/03/23 Influenza Virus Type A (PCR) Negative (Neg) 04/03/23 Influenza Virus Type B (PCR) Negative (Neg) 04/03/23 Micro Respiratory Specimen 04/03/23 Chest X-Ray 04/03/23 Code Status & VTE Plan Code Status FULL CODE VTE Prophylaxis Plan VTE Prophylaxis will be ordered: Yes Supervising Physician Co-Signing Physician Notes Patient seen and examined independently. Discussed with above provider. Patient is a 68-year-old male with history of alcohol use disorder who presents with coffee-ground emesis, cough and sputum production. Vital stable. Saturating well on room air Laboratory evaluation shows leukocytosis, elevated liver enzymes, metabolic acidosis with anion gap, CT abdomen/pelvis shows findings suspicion of esophagitis/Alma-Holloway tear. GI consulted; plan to do EGD tomorrow. Monitor H&H Continue on Protonix drip D5 LR for fluid support Empiric antibiotic with ceftriaxone and doxycycline. Obtain blood culture and sputum culture. (5) Hypertension Hypertension type: unspecified Qualified Code(s): I10 - Essential (primary) hypertension
[2023-04-03] MEDS: D5W AND LACTATED RINGERS 1,000 ML IV SCH ×2 (11:23→21:11)
--- NOTE | 2023-04-03 14:18 | Electrocardiogram Report ---
Test Reason : Blood Pressure : / mmHG Vent. Rate : 080 BPM Atrial Rate : 080 BPM P-R Int : 124 ms QRS Dur : 078 ms QT Int : 430 ms P-R-T Axes : 057 054 080 degrees QTc Int : 495 ms Normal sinus rhythm Minimal voltage criteria for LVH, may be normal variant Nonspecific ST abnormality Prolonged QT Abnormal ECG When compared with ECG of 15-JAN-2019 15:36, No significant change was found Confirmed by Jaden Vera ([id number]) on 04/03/2023 2:18:03 PM Referred By: REFERRED SELF Confirmed By:Yfn Vera
[2023-04-03 15:03] LABS: Hematocrit (blood only) 36.9 % (42.0-52.0); Hemoglobin 12.5 g/dl (14.0-18.0)
[2023-04-03] MEDS: DOXYCYCLINE HYCLATE 100 MG in DEXTROSE 5% 100 ML IV SCH (21:11)
[2023-04-04] MEDS: PANTOprazole 40 MG in DEXTROSE 5% 100 ML IV SCH ×4 (02:46→19:53)
[2023-04-04] MEDS: D5W AND LACTATED RINGERS 1,000 ML IV SCH ×2 (07:02→18:29)
--- NOTE | 2023-04-04 08:15 | Anesthesiology Consultation ---
Date of Service April 04, 2023 Assessment & Plan Chart Review Chart Review: clerk entry level initiated History Surgery Operation Date: 04/04/23 16:30 Proposed Procedures p Esophagogastroduodenoscopy Mark Flores DO Height/Weight Height: 5 ft 10 in Weight: 57.2 kg Allergies Allergy/AdvReac Type Severity Reaction Status Date / Time No Known Allergies Allergy Unverified 01/15/19 15:48 Medications Home Medications Medication Instructions Recorded Confirmed Last Taken diphenhydramine HCl 25 mg tablet 25 mg PO DAILY PRN Allergy Symptoms 01/15/19 04/03/23 01/15/19 (Allergy) atorvastatin 40 mg tablet 40 mg PO QAM 04/03/23 04/03/23 Unknown coenzyme Q10 100 mg tablet 100 mg PO DAILY 04/03/23 04/03/23 Unknown escitalopram oxalate 10 mg tablet 10 mg PO QAM 04/03/23 04/03/23 Unknown metoprolol succinate 50 mg 50 mg PO QAM 04/03/23 04/03/23 Unknown tablet,extended release 24 hr montelukast 10 mg tablet 10 mg PO DAILY 04/03/23 04/03/23 Unknown Active Medications Generic Name Dose Route Start Last Admin Trade Name Freq PRN Reason Stop Dose Admin Acetaminophen 650 mg 04/03/23 10:21 04/03/23 23:12 Acetaminophen 325 Mg Tab PO 05/03/23 10:20 650 mg Q4H PRN Administration Pain or Fever Pantoprazole Sodium 40 mg/ 100 mls @ 20 mls/hr 04/03/23 07:00 04/04/23 02:46 Dextrose IV 05/03/23 06:59 8 mg/hr Q5H YANG 20 mls/hr Administration 8 MG/HR Doxycycline Hyclate 100 mg/ 110 mls @ 50 mls/hr 04/03/23 21:00 04/03/23 23:27 Dextrose IV 04/10/23 20:59 Infused Q12H YANG Infusion Dextrose/Lactated Ringer's 1,000 mls @ 100 mls/hr 04/03/23 10:21 04/04/23 07:02 D5w And Lactated Ringers IV 05/03/23 10:20 100 mls/hr .Q10H YANG Administration NPO Date Last Intake of Fluids: 04/03/23 Time Last Intake of Fluids: 22:00 Date Last Intake of Solids: 04/03/23 Past Medical History Medical History Alcohol abuse HLD (hyperlipidemia) Hypertension Psoriasis Tick bite Past Family History Family History Father Prostate cancer Mother Stroke Past Surgical History Surgical History History of colonoscopy with polypectomy 2020 diverticulosis sig colon with polypectomy showing adenomatous polyps Hx of oral surgery Social History Smoking Status: Never smoker Smoking cigarettes per day: 20 Smoking End Date: 2004 Hx Alcohol Use: Yes Alcohol type: other alcohol intake frequency: 3 or more drinks per day Alcohol Intake Frequency Comment: drinks 1 pint of bourbon a day Hx Substance Use: No Physical Exam Vital Signs Last Vital Signs Temp 99.5 F 04/04/23 07:50 Pulse 87 04/04/23 07:50 Resp 18 04/04/23 07:50 BP 162/88 H 04/04/23 07:50 Pulse Ox 94 04/04/23 07:50 O2 Del Method Room Air 04/04/23 07:50 Testing Laboratory Results 04/03/23 12:51 04/03/23 06:27 PT 10.7 Seconds (9.0-12.0) 04/03/23 06:27 INR 1.0 (0.9-1.1) 04/03/23 06:27 APTT 26.3 Seconds (21.0-31.0) 04/03/23 06:27 Urine Ketones 3+ (Negative) H 04/03/23 Unknown Blood Type O Negative 04/03/23 06:54 Antibody Screen NEGATIVE 04/03/23 06:54 Electrocardiogram Date: 04/03/23 Normal sinus rhythm, rate 80 bpm Minimal voltage criteria for LVH, may be normal variant Nonspecific ST abnormality Prolonged QT Abnormal ECG When compared with ECG of 15-JAN-2019 15:36, No significant change was found Confirmed by Jaden Vera ([id number]) on 04/03/2023 2:18:03 PM Chest X-Ray Date: 04/03/23 IMPRESSION: Small hazy density within the periphery of the right lower lung zone which could be due to overlying soft tissue or a developing airspace opacity. This will be better appreciated on the same day abdomen and pelvis CT.
[2023-04-04] MEDS ORDERED: cefTRIAXone SODIUM 2,000 MG in DEXTROSE 5% 50 ML IV SCH (09:00)
[2023-04-04] MEDS ORDERED: cefTRIAXone SODIUM 1,000 MG in DEXTROSE 5% 50 ML IV SCH (09:00)
[2023-04-04 09:05] LABS: Hematocrit (blood only) 31.5 % (42.0-52.0); Hemoglobin 10.9 g/dl (14.0-18.0); Mean Corpuscular Hemoglobin 35.3 pg (25.0-34.0); Mean Corpuscular Hgb Conc 34.6 g/dL (32.0-36.0); Mean Corpuscular Volume 101.9 fL (80.0-100.0); Platelet Count 135 K/uL (130-400); RDW Coefficient of Variation 12.6 % (11.5-14.5); RDW Standard Deviation 47.6 fL (36.4-46.3); Red Blood Count 3.09 M/uL (4.70-6.10); White Blood Count 5.42 K/ul (4.8-10.8)
[2023-04-04 09:08] LABS: Basophils # (auto) 0.02 K/uL (0-0.2); Basophils % (auto) 0.4 %; Eosinophils # (auto) 0.01 K/uL (0-0.50); Eosinophils % (auto) 0.2 %; Immature Granulocytes # (auto) 0.03 K/uL (0.01-0.20); Immature Granulocytes % (auto) 0.6 %; Lymphocytes % (auto) 11.1 %; Monocytes # (auto) 0.67 K/uL (0.11-0.59); Monocytes % (auto) 12.4 %; Neutrophils # (auto) 4.09 K/uL (1.40-6.50); Neutrophils % (auto) 75.3 %
[2023-04-04] MEDS: METOPROLOL SUCC 50MG EXT REL TAB PO SCH (09:18)
[2023-04-04] MEDS: FOLIC ACID 1 MG TAB PO SCH (09:18)
[2023-04-04] MEDS: ESCITALOPRAM OXALATE 10 MG TAB PO SCH (09:18)
[2023-04-04] MEDS: THIAMINE HCL 100 MG TAB PO SCH (09:19)
[2023-04-04] MEDS: MONTELUKAST SODIUM 10 MG TABLET PO SCH (09:19)
[2023-04-04 10:01] LABS: Albumin Level 3.4 gm/dl (3.4-5.0); BUN Creatinine Ratio 6.1 (10-20); Bilirubin Direct 0.3 mg/dl (0-0.2); Bilirubin,Total 0.8 mg/dl (0.2-1.0); Calcium 7.9 mg/dl (8.6-10.3); Creatinine Clr Calc Pharmacy 87.9 ml/min; Potassium 2.8 mmol/L (3.5-5.1); Total Protein 5.9 gm/dl (6.0-8.3)
[2023-04-04] MEDS: DOXYCYCLINE HYCLATE 100 MG in DEXTROSE 5% 100 ML IV SCH (10:11)
--- NOTE | 2023-04-04 10:14 | Gastroenterology Progress Note ---
Date of Service April 04, 2023 Assessment & Plan (1) Transaminitis: (2) Coffee ground emesis: (3) Lower respiratory infection (e.g., bronchitis, pneumonia, pneumonitis, pulmonitis): Plan: Pt is a 68 yo male who presented w productive cough, n/v symptoms and had an episode of hematemesis in ED this AM. He is hypertensive but normal HR, blood ct, plt, coag functions are normal. Liver appears steatotic on CT. CT showed distal esophagus thickening wo pneumomediastinum. Pt w hx of heavy ETOH use, and prior NSAIDs. DDX: severe esophagitis, Alma Holloway tear, PUD, gastritis. LFTs trending down. Hgb down to 10, K 2.8 - Replete K. Reviewed K level w anesthesia (Dr. Alan Golden), and will proceed with EGD - NPO for EGD eval today - PPI gtt - Avoid NSAIDs/high dose ASA - ETOH cessation - Symptomatic management otherwise - Noted elevated LFTs: Tbili 1.4, AST 133, ALT 53, Alk phos. Suspect related to ETOH hepatitis (Maddrey score <32). Continue regina trend, f/u serologies to r/o AIH, viral/hepatitis infections Admission and Anticipated Discharge Date Admission Date: April 03, 2023 Supervising Physician Co-Signing Physician Notes I personally saw and evaluated the patient on 04/04/2023 with ARLEY Parnell and agree with her findings and plan of care. Abdomen soft and non-tender. No further coffee ground emesis since yesterday AM. On PPI gtt. hemoglobin stable. LFTs improving. K low this AM (2.8) but repleted. Proceed with planned EGD today. I strongly advised him that he needs to abstain from all alcohol moving forward and he states he plans to cut back but not quit completely. Dulce Flores, DO Gastroenterology and Hepatology Subjective Pt denies any n/v since he went up to the floor yesterday. Denies abd pain. Review of Systems Review of Systems: All systems reviewed & are unremarkable except as noted in HPI & below Physical Exam Constitutional: + thin and cooperative Eyes: PERRL, conjunctivae normal, anicteric sclerae ENMT: external ear and nose normal, oropharynx normal Cardiovascular: RRR, no murmur, no edema Gastrointestinal (Abdomen): normal bowel sounds, soft, nontender, no hepatosplenomegaly Skin: no rashes, warm and dry no jaundice Psychiatric: A+Ox3, euthymic affect Lymphatic: no lymphedema Results & Data Vital Signs (Past 12 Hours) Vital Signs Temp Pulse Pulse Resp BP Pulse Ox O2 Del Method 04/04/23 07:50 37.5 C 87 18 162/88 H 94 Room Air 04/04/23 03:33 37.0 C 79 18 145/79 H 94 Room Air 04/03/23 23:35 37.9 C H 88 18 148/84 H 94 Room Air 04/03/23 23:15 89
[2023-04-04] MEDS ORDERED: POTASSIUM CHLORIDE / WTR 10 MEQ/100 ML PLCT IV SCH (10:15)
[2023-04-04] MEDS: POTASSIUM CHLORIDE / WTR 10 MEQ/100 ML PLCT IV SCH ×4 (10:42→15:23)
[2023-04-04] MEDS ORDERED: KETAMINE 50 MG/5 ML SYRINGE ONE (11:38)
[2023-04-04] MEDS ORDERED: GLYCOPYRROLATE 0.2 MG/ML VIAL ONE (11:38)
[2023-04-04] MEDS ORDERED: PROPOFOL IV EMULSION 10 MG/ML 20 ML VIAL IV ONE (11:38)
[2023-04-04] MEDS ORDERED: LIDOCAINE 2% 2 ML VIAL/AMP(20MG/ML) INFIL ONE (11:38)
[2023-04-04 11:42] LABS: HBSAG NON-REACTIVE (NON-REACTIVE); Hepatitis A Antibody IgM NON-REACTIVE (NON-REACTIVE); Hepatitis B Core Antibody IgM NON-REACTIVE (NON-REACTIVE)
--- NOTE | 2023-04-04 12:05 | GI REPORT ---
Patient Name: Clarke Love Procedure Date: 04/04/2023 11:44 AM Date of : 1955 Admit Type: Inpatient Age: 68 Gender: Male Attending MD: Dulce Flores DO, Procedure: Upper GI endoscopy Providers: Dulce Flores DO Referring MD: Ana Maria Savage Md Indications: Coffee-ground emesis Patient Profile: This is a 68 year old male. Refer to note in patient chart for documentation of history and physical. Medicines: Monitored Anesthesia Care Complications: No immediate complications. Estimated Blood Loss: Estimated blood loss: none. Procedure: Pre-Anesthesia Assessment: - Prior to the procedure, a History and Physical was performed, and patient medications and allergies were reviewed. The risks and benefits of the procedure and the sedation options and risks were discussed with the patient. All questions were answered and informed consent was obtained. Patient identification and proposed procedure were verified by the physician, the nurse and the appointment setter in the procedure room. Mental Status Examination: alert and oriented. Airway Examination: Mallampati Class II (the uvula but not tonsillar pillars visualized). Respiratory Examination: clear to auscultation. CV Examination: RRR, no murmurs, no S3 or S4. Prophylactic Antibiotics: The patient does not require prophylactic antibiotics. Prior Anticoagulants: The patient has taken no anticoagulant or antiplatelet agents. ASA Grade Assessment: III - A patient with severe systemic disease. After reviewing the risks and benefits, the patient was deemed in satisfactory condition to undergo the procedure. The anesthesia plan was to use monitored anesthesia care (MAC). Immediately prior to administration of medications, the patient was re-assessed for adequacy to receive sedatives. The physical status of the patient was re-assessed after the procedure. After obtaining informed consent, the endoscope was passed under direct vision. Throughout the procedure, the patient's blood pressure, pulse, and oxygen saturations were monitored continuously. The Endoscope was introduced through the mouth, and advanced to the second part of duodenum. The upper GI endoscopy was accomplished without difficulty. The patient tolerated the procedure well. Findings: The Z-line was irregular and was found 42 cm from the incisors. LA Grade D (one or more mucosal breaks involving at least 75% of esophageal circumference) esophagitis with no bleeding was found. A small hiatal hernia was present. Severe inflammation was found in the entire examined stomach. Severely erythematous mucosa was found in the duodenal bulb and in the second portion of the duodenum. Impression: - Z-line irregular, 42 cm from the incisors. - LA Grade D esophagitis with no bleeding. There was multiple stigmata of recent bleeding with areas of sloughing. No active bleeding seen today. This is the source of patient's coffee ground emesis. - Small hiatal hernia - Gastritis. - Erythematous duodenopathy. - No specimens collected. Recommendation: - Return patient to [facility] for [facility] care. - Resume previous diet. - Continue present medications. - PPI gtt for a total of 72 hours and then PPI 40 mg BID for 12 weeks and daily therafter. - Repeat EGD in 12 weeks to assess healing and taking biopsies if esophagitis has not healed. - I strongly advised patient that he needs to abstain from all alcohol moving forward. Dulce Flores, 04/04/2023 12:04:23 PM Note Initiated On: 04/04/2023 11:44 AM Number of Addenda: 0 I attest to the content of the Intraoperative Record and orders documented therein, exceptions below {[id number]}
[2023-04-04 12:28] LABS: Estimated Average Glucose 88 mg/dl; Hemoglobin A1C 4.7 % (4.5-5.6)
--- NOTE | 2023-04-04 12:37 | Anesthesiology Progress Note ---
Date of Service April 04, 2023 Anesthesia Post Procedure Vital Signs Vital Signs: Temp Pulse Pulse Resp BP Pulse Ox O2 Del Method 04/04/23 12:21 99.3 F 99 H 16 152/97 H 96 Room Air 04/04/23 06:00 88 04/04/23 12:05 99.3 F 62 14 111/72 91 Room Air 04/04/23 11:45 99.3 F 79 16 161/96 H 99 Room Air 04/04/23 11:00 Room Air 04/04/23 11:20 99.3 F 81 18 163/86 H 95 Room Air 04/04/23 07:50 99.5 F 87 18 162/88 H 94 Room Air 04/04/23 03:33 98.6 F 79 18 145/79 H 94 Room Air 04/03/23 23:35 100.2 F H 88 18 148/84 H 94 Room Air 04/03/23 23:15 89 04/03/23 21:58 Room Air 04/03/23 19:18 98.2 F 94 H 18 150/79 H 95 Room Air 04/03/23 15:48 99.0 F 88 20 143/81 H 94 Room Air 04/03/23 15:06 93 H Pain Intensity Medial Abdomen: Pain Intensity: 3 Transfer of Care Handoff Completed per policy Notes Mental Status: alert / awake / arousable and participated in evaluation Patient Amnestic to Procedure: Yes Nausea / Vomiting: adequately controlled Pain: adequately controlled Airway Patency, RR, SpO2: stable & adequate BP & HR: stable & adequate Hydration State: stable & adequate Anesthetic Complications: no major complications apparent and Pt Satisfied with anesthetic care
[2023-04-04] MEDS: ALUMINUM/MAGNESIUM SUSP 30 ML UDC PO PRN ×2 (13:54→17:41)
--- NOTE | 2023-04-04 18:07 | Hospitalist Progress Note ---
Date of Service April 04, 2023 Assessment & Plan (1) Coffee ground emesis: (2) Alcoholic ketosis: (3) Lower respiratory infection (e.g., bronchitis, pneumonia, pneumonitis, pulmonitis): (4) Alcohol abuse: (5) Hypertension: (6) Transaminitis: Plan 68yoM with PMHx of HTN, HLD, allergic rhinitis, depression, former tobacco abuse and alcohol abuse admitted for further evaluation of coffee ground emesis. Coffee ground emesis Suspected UGIB EGD procedure today- noted hiatal hernia, gastritis and erythematous duodenopathy but no active bleeding. Appreciate GI recs H/H has been stable- no transfusion needed Hypokalemia Replete as needed Alcohol abuse drinks 1 pint to 1/5 of bourbon daily, states last drink on 03/31/23 Has not had withdrawal symptoms AWSS protocol daily thiamine and folic acid cessation encouraged Alcoholic ketosis Elevated anion gap Stable Lower respiratory tract infection Episodes of purulent sputum, sputum culture with normal joey growth to date Chest XRAY noted questionable opacity on the right, CT abd/pelvis better defined area as more likely linear scarring Procalcitonin wnl Blood Cx NGTD Empiric antibiotics discontinued Prolonged QTC avoid QTC prolonging meds Hyperglycemia hgba1c wnl Transaminitis AST > ALT likely 2/2 alcohol, improving on recheck CT with noted hepatic steatosis Continue to hold statin HTN continue metoprolol DVT ppx: SCDS, consider starting chemical after procedure. DNR/DNI PCP: Gaston Yañez Dispo:med/tele currently Admission and Anticipated Discharge Date Admission Date: April 03, 2023 Subjective Pt seen this AM before his procedure. States that he feels fine, denies alcohol withdrawal symptoms such as agitation, shaking, sweating, tremor, N/V. States that his last drink was on Saturday. No further episodes of emesis. Review of Systems Review of Systems: All systems reviewed & are unremarkable except as noted in Subjective Physical Exam Physical Exam: General: Alert, oriented. No acute distress Skin: No noted rashes or bruises Psych: Appropriate mood and affect Neuro: No gross deficits HEENT: NC/AT CV: RRR Resp: Breath sounds decreased bilaterally, no increased effort of breathing. Abdomen: Soft, nontender, nondistended. Extremities: No edema in lower extremities bilaterally. Results & Data Results & Data Vital Signs (Past 12 Hours) Vital Signs Temp Pulse Pulse Resp BP Pulse Ox O2 Del Method 04/04/23 14:00 93 H 04/04/23 15:58 36.8 C 86 18 145/86 H 95 Room Air 04/04/23 13:10 37.1 C 92 H 16 169/93 H 94 Room Air 04/04/23 12:35 95 H 16 158/97 H 94 Room Air 04/04/23 12:21 99 H 16 152/97 H 96 Room Air 04/04/23 12:05 37.4 C 62 14 111/72 91 Room Air 04/04/23 11:45 37.4 C 79 16 161/96 H 99 Room Air 04/04/23 11:00 Room Air 04/04/23 11:20 37.4 C 81 18 163/86 H 95 Room Air 04/04/23 07:50 37.5 C 87 18 162/88 H 94 Room Air (5) Hypertension Hypertension type: unspecified Qualified Code(s): I10 - Essential (primary) hypertension
[2023-04-05] MEDS: PANTOprazole 40 MG in DEXTROSE 5% 100 ML IV SCH ×3 (00:55→11:04)
[2023-04-05 07:38] LABS: Basophils # (auto) 0.02 K/uL (0-0.2); Basophils % (auto) 0.4 %; Eosinophils # (auto) 0.02 K/uL (0-0.50); Eosinophils % (auto) 0.4 %; Hematocrit (blood only) 30.2 % (42.0-52.0); Hemoglobin 10.5 g/dl (14.0-18.0); Immature Granulocytes # (auto) 0.04 K/uL (0.01-0.20); Immature Granulocytes % (auto) 0.8 %; Lymphocytes # (auto) 0.94 K/uL (1.2-3.4); Lymphocytes % (auto) 19.5 %; Mean Corpuscular Hemoglobin 35.4 pg (25.0-34.0); Mean Corpuscular Hgb Conc 34.8 g/dL (32.0-36.0); Mean Corpuscular Volume 101.7 fL (80.0-100.0); Monocytes % (auto) 14.5 %; Neutrophils # (auto) 3.11 K/uL (1.40-6.50); Neutrophils % (auto) 64.4 %; Platelet Count 122 K/uL (130-400); RDW Coefficient of Variation 12.3 % (11.5-14.5); RDW Standard Deviation 45.9 fL (36.4-46.3); Red Blood Count 2.97 M/uL (4.70-6.10); White Blood Count 4.83 K/ul (4.8-10.8)
[2023-04-05 07:50] LABS: Albumin Globulin Ratio 1.3 (0.9-2); Albumin Level 3.1 gm/dl (3.4-5.0); BUN Creatinine Ratio 6.7 (10-20); Bilirubin,Total 0.5 mg/dl (0.2-1.0); Calcium 7.5 mg/dl (8.6-10.3); Creatinine Clr Calc Pharmacy 104.1 ml/min; Est GFR (African American) 120.6 ml/min; Globulin 2.4 gm/dl (2.5-4.0); Potassium 3.1 mmol/L (3.5-5.1); Total Protein 5.5 gm/dl (6.0-8.3)
[2023-04-05] MEDS: FOLIC ACID 1 MG TAB PO SCH (09:59)
[2023-04-05] MEDS: MONTELUKAST SODIUM 10 MG TABLET PO SCH (10:00)
[2023-04-05] MEDS: THIAMINE HCL 100 MG TAB PO SCH (10:00)
[2023-04-05] MEDS: METOPROLOL SUCC 50MG EXT REL TAB PO SCH (10:00)
[2023-04-05] MEDS: ESCITALOPRAM OXALATE 10 MG TAB PO SCH (10:00)
--- NOTE | 2023-04-05 14:01 | Discharge Summary ---
Date of Service April 05, 2023 Admission HPI Per Admitting Provider This is a 68-year-old male who has significant past medical history of HTN, HLD, allergic rhinitis, depression, former tobacco abuse and alcohol abuse who presents to ER secondary to flulike symptoms x5 days; coffee-ground emesis x2 days. Patient's sister is at bedside. He is a retired [employer]. His symptoms started on Saturday with sinus congestion, sore throat and productive cough. The symptoms have continued and worsened and is now producing purulent colored sputum. He also generally feels nauseated, fevers, chills, sweats, lightheaded and dizzy. Yesterday he developed vomiting and described it as coffee-ground in nature. In ER he had episode of emesis and produced 300 cc of coffee-ground fluid. He denies any abdominal pain or diarrhea. His last bowel movement was 5 days ago. He has had poor appetite over the last several days and inability to eat, drink or take his medications. He also states significant weight loss over the last several months but is unable to quantify how much. Sister at bedside also noticed weight loss. He no longer smokes tobacco and quit approximately 15 to 20 years ago. He does drink a pint to 1/5 of bourbon every day. His last drink was on Saturday. He denies any prior history of withdrawal or having withdrawal-like symptoms. He currently lives by himself. In ED patient's blood pressure was elevated but he otherwise remained hemodynamically stable. Lab work revealed a stable H&H at 14.1 and 40.7 with microcytic indices. He had a slight elevation in his WBC at 11.16 K, BUN 12, creatinine 1.09, elevated anion gap at 23, glucose 172 and transaminitis with total bilirubin 1.1, AST 133, ALT 53 and alkaline phosphatase at 140. His PT and INR was normal. CT abdomen pelvis revealed moderate circumferential thickening of the distal esophagus with paraesophageal edema/fluid favoring a nonspecific esophagitis. Trace bilateral pleural effusions, multiple healed right-sided rib fractures and hepatic steatosis. Patient states he fell off a ladder approximately 6 years ago. He denies any chest pain. He was type and screen. Admission Exam Per Admitting Provider This is a 68-year-old male who has significant past medical history of HTN, HLD, allergic rhinitis, depression, former tobacco abuse and alcohol abuse who presents to ER secondary to flulike symptoms x5 days; coffee-ground emesis x2 days. Patient's sister is at bedside. He is a retired [employer]. His symptoms started on Saturday with sinus congestion, sore throat and productive cough. The symptoms have continued and worsened and is now producing purulent colored sputum. He also generally feels nauseated, fevers, chills, sweats, lightheaded and dizzy. Yesterday he developed vomiting and described it as coffee-ground in nature. In ER he had episode of emesis and produced 300 cc of coffee-ground fluid. He denies any abdominal pain or diarrhea. His last bowel movement was 5 days ago. He has had poor appetite over the last several days and inability to eat, drink or take his medications. He also states significant weight loss over the last several months but is unable to quantify how much. Sister at bedside also noticed weight loss. He no longer smokes tobacco and quit approximately 15 to 20 years ago. He does drink a pint to 1/5 of bourbon every day. His last drink was on Saturday. He denies any prior history of withdrawal or having withdrawal-like symptoms. He currently lives by himself. In ED patient's blood pressure was elevated but he otherwise remained hemodynamically stable. Lab work revealed a stable H&H at 14.1 and 40.7 with microcytic indices. He had a slight elevation in his WBC at 11.16 K, BUN 12, creatinine 1.09, elevated anion gap at 23, glucose 172 and transaminitis with total bilirubin 1.1, AST 133, ALT 53 and alkaline phosphatase at 140. His PT and INR was normal. CT abdomen pelvis revealed moderate circumferential thickening of the distal esophagus with paraesophageal edema/fluid favoring a nonspecific esophagitis. Trace bilateral pleural effusions, multiple healed right-sided rib fractures and hepatic steatosis. Patient states he fell off a ladder approximately 6 years ago. He denies any chest pain. He was type and screen. Principal Diagnosis Hematemesis Discharge Exam General: Alert, oriented. No acute distress Skin: No noted rashes or bruises Psych: Appropriate mood and affect Neuro: No gross deficits HEENT: NC/AT CV: RRR Resp: Breath sounds decreased bilaterally, no increased effort of breathing. Abdomen: Soft, nontender, nondistended. Extremities: No edema in lower extremities bilaterally. Discharge Data Allergies Allergy/AdvReac Type Severity Reaction Status Date / Time No Known Allergies Allergy Unverified 01/15/19 15:48 Consultations 04/03/23 08:45 ED Decision to Admit Stat 04/03/23 08:54 Consult Gastroenterology Routine Procedures Performed Operation Date: 04/04/23 16:30 Actual Procedures p Esophagogastroduodenoscopy - Dulce Flores, Ordered Studies 04/03/23 07:01 CT Abd and Pelvis [CT abd pelvis IV con only] Stat Hospital Course (1) Coffee ground emesis: (2) Alcoholic ketosis: (3) Lower respiratory infection (e.g., bronchitis, pneumonia, pneumonitis, pulmonitis): (4) Alcohol abuse: (5) Hypertension: (6) Transaminitis: Plan 68yoM with PMHx of HTN, HLD, allergic rhinitis, depression, former tobacco abuse and alcohol abuse admitted for further evaluation of coffee ground emesis. Coffee ground emesis Suspected UGIB EGD - noted hiatal hernia, gastritis and erythematous duodenopathy but no active bleeding. Was on PPI drip-discharged with pantoprazole 40mg daily. H/H has been stable- no transfusion needed Hypokalemia Repleted as needed Recommend continued monitoring by PCP- potassium check at pcp visit on 04/12/23. Alcohol abuse drinks 1 pint to 1/5 of bourbon daily, states last drink on 03/31/23 Has not had withdrawal symptoms Was on AWSS protocol while hospitalized cessation encouraged, pt was open to resources. Resources provided on discharge. Alcoholic ketosis Elevated anion gap Stable Lower respiratory tract infection Episodes of purulent sputum, sputum culture with normal joey growth to date Chest XRAY noted questionable opacity on the right, CT abd/pelvis better defined area as more likely linear scarring Procalcitonin wnl Blood Cx NGTD Empiric antibiotics discontinued Prolonged QTC avoid QTC prolonging meds Hyperglycemia hgba1c wnl Transaminitis AST > ALT likely 2/2 alcohol, improving on recheck CT with noted hepatic steatosis Statin held, re-started on discharge. PCP follow up. HTN continue metoprolol Total Time Total Time Spent Total Time Spent (In Minutes): >30 minutes Discharge Plan Discharge Items Patient Disposition: Home - Self-Care Reason For Visit: COFFEE GROUNDS EMESIS Discharge Diagnosis: Hematemesis Activity: Per Instructions section Non-emergency contact: Primary Care Provider and Implementation Project Coordinator Call non-emergency contact if: your symptoms worsen Follow-up/Referrals: Gaston Yañez DO [Primary Care Provider] - (Date & Time 04/12/2023 1:40 PM Provider Gaston Yañez DO Department [facility] ) Diet: Regular Addtl Attending Provider Instructions: You were admitted as it was noted that you were bleeding while throwing up. You were evaluated by the airport tower controller and they noted changes to your GI tract that were likely the result of your chronic use of alcohol. You were no longer bleeding when the procedure was done and you did not need to be transfused blood during your hospital stay. We recommend that you continue with your new choice of not drinking alcohol anymore. Please follow up with the resources you were provided with to help with that. Also follow up with your primary care provider as they can help with resources as well. You are being discharged with a medication called pantoprazole to help with your symptoms. Please take as prescribed. Pending Studies at Discharge: No Stand-Alone Forms: My [facility] [employer], Smoking Cessation Medications and DC Order Prescriptions: New pantoprazole 40 mg tablet,delayed release (DR/EC) 40 mg PO DAILY 28 Days Qty: 28 0RF Continued diphenhydramine HCl [Allergy] 25 mg Tablet 25 mg PO DAILY PRN (Reason: Allergy Symptoms) atorvastatin 40 mg tablet 40 mg PO QAM metoprolol succinate 50 mg tablet extended release 24 hr 50 mg PO QAM montelukast 10 mg tablet 10 mg PO DAILY escitalopram oxalate 10 mg tablet 10 mg PO QAM coenzyme Q10 100 mg Tablet 100 mg PO DAILY Discharge Orders: Discharge Order (Routine); Ordered 04/05/23 Ordered By: Ana Maria Savage Admission Data Admit Date/Time: 04/03/23 08:54 Attending Provider: Ana Maria Savage Admit Provider: Yadiel Figueroa Primary Care Provider: Gaston Yañez Other Providers: Yadiel Figueroa ; Dulce Flores Other Interventions: Discharge Summary Assessment (RN) Last Done: 04/04/23 12:26
[2023-04-05] MEDS ORDERED: POTASSIUM CHLORIDE CRTAB 20 MEQ TABCR PO STA (14:02)
[2023-04-09 08:22] LABS: Alpha 1 Antitrypsin 153 mg/dL (83-199); Anti Mitochondrial Antibody NEGATIVE (NEGATIVE); Anti Nuclear Antibody Screen POSITIVE (NEGATIVE); CMV IgG Antibody <0.60 U/mL; CMV IgM Antibody <30.00 AU/mL; Ceruloplasmin 28 mg/dL (18-36); HSV Type 1 DNA Not Detected (Not Detected); HSV Type 1&2 DNA Source Whole Blood; HSV Type 2 DNA Not Detected (Not Detected); Parvovirus IgG 3.3 (<0.9); Parvovirus IgM 0.1 (<0.9); Smooth Muscle Antibody NEGATIVE (NEGATIVE)
[2023-04-09 13:04] LABS: ANA Pattern Nuclear, Speckled
== END 2023-04-05 14:46 | disposition home or self-care (01) ==
LOC: ED 05:46 → 2N 05:46 → SUATTDRO 08:54 → 2N 09:25